=== PATIENT | female | born 1955 | race Caucasian/White ===

== ENCOUNTER 2025-02-06 06:11 | Day surgery (SDC) | payer OTHER ==
[2025-02-06] MEDS: Lactated Ringers 1,000 ML IV SCH (07:00)
[2025-02-06] MEDS ORDERED: Midazolam 1 MG/ML 2 ML SDV ONE (07:18)
[2025-02-06] MEDS ORDERED: fentaNYL 50 MCG/ML SDV ONE (07:18)
[2025-02-06] MEDS ORDERED: Propofol 200 MG/20 ML SDV ONE (07:18)
== END 2025-02-06 10:11 | disposition home or self-care (01) ==
LOC: JP.SDS 06:11
PROVIDERS: ATTEND Surgery
DX: Z12.11 Encounter for screening for malignant neoplasm of colon (principal); D12.2 Benign neoplasm of ascending colon; K57.30 Diverticulosis of large intestine without perforation or abscess without bleeding; Z80.0 Family history of malignant neoplasm of digestive organs; Z86.0100 Personal history of colon polyps, unspecified
CPT/HCPCS: 00811-QZ; J2250; J2704; J3010; J7120